=== PATIENT | female | born 1990 | race Caucasian/White ===

== ENCOUNTER 2024-11-07 09:48 | Outpatient (CLI) | payer SELFPAY ==
[2024-11-07 10:27] LABS: Albumin Level 4.3 g/dL (3.5-5.1); Anion Gap 6 mmol/L (4-12); Blood Urea Nitrogen 10 mg/dL (7-17); Calcium 9.1 mg/dL (8.4-10.2); Carbon Dioxide 29 mmol/L (22-30); Chloride 105 mmol/L (98-107); Estimated Glomerular Filt Rate > 60; Glucose 84 mg/dL (65-110); Potassium 4.2 mmol/L (3.4-5.0); Sodium 140 mmol/L (137-145)
[2024-11-07 10:28] LABS: Iron 83 ug/dL (37-170)
--- OUTSIDE RECORDS SUMMARY | 2024-11-07 10:34 | XMS_ITS | Encounter Summary ---
Author Organization [facility] Address [facility] [place] [address] Care Team Providers Care Residential Air Sealing Technician Name Role Phone Sergey Cordon NP Primary Care Provider [phone] Matt Cannon MD Primary Care Provider [phone] Encounter Details Date Type Department Care Team (Late st Contact Info) Description 09/17/2017 Abstract [facility] CONVERSION [address] [place] [address] , Generic Conversion, Social History Tobacco Use Types Packs/Day Years Used Date Smoking Tobacco: Never Assessed Comments Unknown Sex and Gender Information Value Date Recorded Sex Assigned at Not on file 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 Gender Identity Not on file Sexual Orientation Not on file documented as of this encounter Plan of Treatment Not on file documented as of this encounter Visit Diagnoses Not on filedocumented in this encounter Additional Health Concerns Infection Onset Date Last Indicated Resolved Time COVID-19 Rule Out 11/21/2021 11/21/2021 11/21/2021 2:03 PM CDT COVID-19 Rule Out 01/07/2022 01/07/2022 01/07/2022 11:58 AM CDT documented as of this encounter Care Teams Residential Air Sealing Technician Relationship Specialty Start Date End Date Sergey Cordon NP [address] [address] PCP - General FAMILY PRACTICE 03/21/18 12/08/21 Matt Cannon MD [address] [facility] [address] [place] [address] PCP - General INTERNAL MEDICINE 12/09/21 documented as of this encounter
--- OUTSIDE RECORDS SUMMARY | 2024-11-07 10:34 | XMS_ITS | Continuity of Care Document ---
Author Name [facility] Organization [facility] Care Team Providers Care Divinity Professor Name Role Phone [facility] Unavailable Unavailable Encounters Combined list of: 1) Encounters from Department of Veterans Affairs facilities going backup to the last 18 months, not all [facility] inpatient encounters are included; 2) Encounters from the Department of Defense facilities going backup to 280 months. Location Location Details Encounter Type Encounter Number Reason For Visit Attending Provider ADM Date DC Date Status Disposition Source [facility] Outpatient Encounter [id number] 07/14 [facility]
--- OUTSIDE RECORDS SUMMARY | 2024-11-07 10:35 | XMS_ITS | Clinical Summary ---
Author Organization [facility] Address [facility], [facility] [place] [address] Care Team Providers Care Appraisal Coordinator Name Role Phone Matt Cannon MD Primary Care Provider [phone] Allergies Active Allergy Reactions Criticality Noted Date Comments Codeine GI Upset Medium 03/21/2018 Medications levothyroxine 125 MCG tablet Take 125 mcg by mouth every morning. Active vitamin 28-0.6-0.4-340 MG capsule Take 1 capsule by mouth daily. Active pantoprazole 40 MG tablet Take 40 mg by mouth daily. Active metoclopramide 10 MG tablet Take 10 mg by mouth 4 (four) times daily. Active ferrous sulfate, 65 mg elemental, 325 (65 FE) MG tablet Take 1 tablet (325 mg total) by mouth daily with breakfast. 30 tablet 1 06/16/2018 Active sertraline 100 MG tablet Take by mouth daily. Active cyclobenzaprine 10 MG tablet Take 10 mg by mouth 3 (three) times daily as needed for Muscle Spasms. Active Active Problems Problem Noted Date Diagnosed Date delivery ([facility]) 01/08/2022 ([facility]) 01/08/2022 Uterine contractions ([facility]) 01/07/2022 Uterine contractions during ([facility]) 06/11/2018 Pelvic pain affecting ([facility]) 2017 UTI (urinary tract infection) during ( [facility]) 03/21/2018 Family History Medical History Relation Comments Heart Disease Father Thyroid Disease Mother Relation Status Comments Brother Alive Father Alive Maternal Grandfather Alive Maternal Grandmother Mother Alive Paternal Grandfather Paternal Grandmother Social History Tobacco Use Types Packs/Day Years Used Date Smoking Tobacco: Never Smokeless Tobacco: Never Alcohol Use Standard Drinks/Week Comments No 0 (1 standard drink = 0.6 oz pur e alcohol) AUDIT-C Answer Date Recorded Frequency of Alcohol Consumption Never 03/21/2018 Average Number of Drinks Not on file 018 Frequency of Binge Drinking Not on file 03/04 Depression Answer Date Recor ded Last EPDS Total Score 0 01/09/2022 Last EPDS Self Harm Result Never 01/09 Comments No Sex and Gender Information Value Date Recorded Sex Assigned at Not on file 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 Gender Identity Not on file Sexual Orientation Not on file Last Filed Vital Signs Vital Sign Reading Time Taken Comments Blood Pressure 109/63 01/10/2022 8:18 AM CDT Pulse 77 01/10/2022 8:18 AM CDT Temperature 36.7 C (98.1 F) 01/10/2022 8:17 AM CDT Respiratory Rate 18 01/10/2022 4:47 AM CDT Oxygen Saturation 76% 01/07/2022 6:07 PM CDT Inhaled Oxygen Concentration - - Weight 111.1 kg (245 lb) 01/07/2022 7:00 AM CDT Height 167.6 cm (5' 6 ) 01/07/2022 7:00 AM CDT Body Mass Index 39.54 01/07/2022 7:00 AM CDT Plan of Treatment Health Maintenance Due Date Last Done Comments Annual Physical 09/16/1995 DTaP, Tdap and Td Vaccines ( 1 - Tdap) 09/16/2011 Hepatitis B Vaccines (1 of 3 - 19+ 3-dose series) 09/16/2011 COVID-19 Vaccine ( - 2023-2 5 season) 2024 Cervical Cancer Screening Pa p Smear (Age 30 to 64) Every 3 Years 02/28/2027 02/29/2024, 06/11/2020 Cervical Cancer Screening Pa p with HPV Testing (Age 30 to 64) Every 5 Years 02/28/2029 02/29/2024 Cervical Cancer Screening wi th HPV 02/28/2029 Hepatitis C Completed 10/25/2017 HPV Vaccines Aged Out No longer eligi ble based on patient's age to complete this topic Meningococcal B Vaccine Aged Out No l onger eligible based on patient's age to complete this topic Meningococcal Vaccine Aged Out No vladimir judy eligible based on patient's age to complete this topic Pneumococcal Vaccine: Pediatrics (0 to 5 Years) and At-Risk Patients (6 to 49 Years) Aged Out No longer eligible b ased on patient's age to complete this topic RSV Immunizations Under 20 Months Aged Out No longer eligible b ased on patient's age to complete this topic Procedures Procedure Name Priority Date/Time Associated Diagnosis Comments HUMAN PAPILLOMAVIRUS, HIGH-RISK TYPES Routine 02/29/2024 12:00 PM CDT CYTOPATH CERV/VAG THIN LAYER Routine 02/29/2024 12:00 AM CDT HEPATITIS C ANTIBODY Routine 10/25/2017 3:21 PM CDT Encounter for supervision of normal ([facility]) from Last 3 Months or Most Recently Relevant to Health Maintenance Results * HUMAN PAPILLOMAVIRUS, HIGH-RISK TYPES (02/29/2024 12:00 PM CDT) SPECIMEN CERVIX 03/06/2024 7:39 AM CDT [facility] HPV DNA HIGH RISK NEGATIVE NEGATIVE 03/07/2024 12:40 AM CDT [facility] Comment:SEE CYTOLOGY REPORT 02/29/2024 12:0 0 PM CDT Laura Dias MD PATHOLOGY/CYTOLOGY ORDERA BLES Final Result [facility] [address] [place] [address], * Cytopath Cerv/Vag Thin Layer (02/29/2024 12:00 AM CDT) THIN PREP PAP [facility] [address] [place] [address] Department of Pathology Pathology Report CERVICAL/VAGINAL PAP SMEAR REPORT Name: MAJO CHAHAL Age: 3 1990 (Age: 33) Location: [facility] Sex: F Collected Date: 02/29/2024 Hospital #: [id number] Date Received: 03/02/2024 Date Reported: 03/07/2024 Provider: LAURA CANNON MD INTERPRETATION CERVICAL/ENDOCERVI OMARI: SATISFACTORY FOR EVALUATION. ENDOCERVICAL/TRANS FORMATION ZONE COMPONENT PRESENT. NEGATIVE FOR INTRAEPITHELIAL LESION OR MALIGNANCY. NEGATIVE FOR HIGH RISK HPV. The FDA approved Aptima HPV assay is an in vitro nucleic acid amplification test for the qualitative detection of E6/E7 viral messenger RNA (mRNA) from 14 high-risk types of human papillomavirus (HPV) in cervical specimens. The high-risk HPV types detected by the assay include: 16,18,31,33,35,39, 45,51,52,56,58,59, 66, and 68. Electronically Signed Out By ANA Foster (ASCP) CLINICAL HISTORY Z12.4 SCREENING FOR CERVICAL CANCER SCREENING PAP ThinPrep Pap Test with HR HPV testing in patient > 30 years requested. Date of Last Menstrual Period: UNKNOWN Menstrual Status: Regular SPECIMEN SUBMITTED CERVICAL/ENDOCERVI OMARI Specimen Received:1 Thin Prep Vial, Image Assisted Pap (SMD) Please note: The Pap smear is not a diagnostic test. It is a screening test. Negative results on combined screening (Pap test and HPV-DNA) have a high negative predictive value (99.1-100 percent) for cervical cancer. The pap test is not effective in detecting cervical adenocarcinoma. [facility] 02/29/2024 03/02/2024 9:5 7 AM CDT Comment:CERVICAL/ENDOCERVICA L us Laura Dias MD PATHOLOGY/CYTOLOGY ORDERA BLES Final Result [facility] [address] [place] [address], * HEPATITIS C ANTIBODY (10/25/2017 3:21 PM CDT) HEPATITIS C AB NON-REACTI VE NON-REACT STEVEN 10/27/2017 8:31 AM CDT [facility] Comment: ANTIBODIES TO HCV NOT DETECTED. DOES NOT EXCLUDE THE POSSIBILITY OF EXPOSURE TO HCV. 10/25/2017 3:21 PM CDT us Laura Dias MD LABORATORY Final Res ult [facility] [address] [place] [address], [id number] from Last 3 Months or Most Recently Relevant to Health Maintenance Insurance [facility] Advance Directives * Full Code (Latest Code Status on File) Date Activated Date Inactivated Comments 01/07/2022 9:09 AM 01/10/2022 2:26 PM Care Teams Appraisal Coordinator Relationship Specialty Start Date End Date Matt Cannon MD PCP - General INTERNAL MEDICINE 12/09/21
[2024-11-07 10:40] LABS: Hematocrit 38.3 % (37.0-47.0); Hemoglobin 12.4 g/dL (12.0-15.0); Mean Corpuscular HGB Conc 32.4 g/dl (32-36); Mean Corpuscular Hemoglobin 30.3 pg (26-34); Mean Corpuscular Volume 93.6 fl (80-100); Mean Platelet Volume 9.7 fl (7.4-10.4); Platelet Count Result 232 k/mm3 (150-375); Red Blood Count 4.09 M/mm3 (4.2-5.4); Red Cell Distribution Width 12.4 % (11.5-14.5); White Blood Count 6.2 K/mm3 (4.5-10.0)
[2024-11-07 11:06] LABS: Prealbumin 22.8 mg/dL (17.6-36.0)
[2024-11-11 16:48] LABS: Vitamin B1 8 nmol/L (8-30)
== END 2024-11-07 09:49 | disposition home or self-care (01) ==
PROVIDERS: Visit Provider Surgery Plastic and Reconstructive Surgery
DX: R63.4 Abnormal weight loss (principal)
CPT/HCPCS: 36415; 80048; 82040; 83540; 84134; 84425; 85027

== ENCOUNTER 2024-12-13 03:04 | Day surgery (SDC) | payer OTHER, SELFPAY ==
[2024-12-05 14:17] VITALS: BMI 27.5
--- NOTE | 2024-12-05 14:17 | PC.NURSE ---
Report to the Outpatient Waiting Room, entrance under the green pavilion located off [facility], at time _0600_ on date _[id number]_. Planned Procedure Time: _0730_.? Time changes happen often and if your time is changed the preop area will call you the afternoon before. - You and your visitor will be asked to self-screen and do not enter if you have any COVID symptoms. Please call surgeon if you need to reschedule. - A mask is optional within the hospital at this time. Patients may have clear liquids (water, carbonated beverages, clear teas, apple juice) until 3 hours prior to surgery with a maximum of 20 ounces. - No food from midnight until time of surgery and no smoking, or chewing tobacco (or any form of nicotine). No chewing gum, candy or mints. Take only the following medications with a SIP of water on the morning of surgery: ___None____ DO NOT STOP ANY OF YOUR OTHER PRESCRIPTION MEDICATIONS PRIOR TO SURGERY EXCEPT THE FOLLOWING Hold all vitamins and supplements for 3 days per anesthesiologist. Medications to discontinue per physician Date to take last dose Please no make-up, nail togolese, hairspray, perfume, deodorant, or body powder the day of surgery.? No jewelry (including any body piercings) or valuables the day of surgery, leave them at home.? Please take a shower or bath the night before, or the morning of, surgery with an antibacterial soap.? Wear comfortable, loose fitting clothing.? - Jewelry must be removed prior to entering the operating room.? Rings and piercings that are not removed may be cut off. - The hospital will not accept responsibility for valuables.? - Please leave all valuables, including medications, at home the day of surgery. If you are going home after surgery, a licensed high lift driver must drive you home.? - NO public transportation without another adult if you receive anesthesia. - We recommend that an adult stay with you for 24 hours following discharge. - We also recommend that you do not drive, make important decision, drink alcoholic beverages, or take any drugs that were not prescribed by your health care provider for at least 24 hours after your discharge time. Follow any additional instructions given to you from your surgeon. Telephone instructions given to __Majo___and asked if any additional questions and then verbalized understanding. Patient advised to call surgeon office or pre surgery nurse liaison [phone] if any additional questions.
[2024-12-13] VITALS (9 sets, daily range): BP systolic 112–130; BP diastolic 66–81; PULSE 68–105; RESP 13–19; TEMP 36.1; O2SAT 94–100; BMI 27.6
--- OUTSIDE RECORDS SUMMARY | 2024-12-13 03:06 | XMS_ITS | Continuity of Care Document ---
Author Name [facility] Organization [facility] Care Team Providers Care Literature Professor Name Role Phone [facility] Unavailable Unavailable [...] ADM Date DC Date Status Disposition Source [facility] Outpatient Encounter [id number] 07/14 [facility]
[2024-12-13 06:36] LABS: Urine Cotinine NEGATIVE
[2024-12-13] MEDS: LACTATED RINGERS 1,000 ML 30 ML IV CONT ×2 (06:55→09:50)
--- NOTE | 2024-12-13 07:03 | WPDHPUPDATE1 ---
History and Physical Update Update Date/Time: 12/13/24 07:03 History and Physical has been reviewed, including an updated exam of the patient. There are NO changes in the patient's condition. Risks, benefits, and alternatives have been discussed and questions answered. Patient agrees to proceed with procedure.
--- NOTE | 2024-12-13 07:18 | W.PM.PROC2 ---
Procedure Note - Detailed Date of Procedure 12/13/24 Pre-op Diagnosis micromastia, breast ptosis Post-op Diagnosis Same Procedure Performed Bilateral augmentation mastopexy Surgeon Case Tello MD Anesthesia General Findings Inverted T Superior pedicle Bilateral Nastrelle Inspira SoftTouch 520cc Subfascial Right: REF# [id number] SN [id number] Left: REF# [id number] SN [id number] Description of Procedure She is here today for bilateral breast augmentation mastopexy. Previously and again today the risks, benefits, alternatives were discussed in extensive detail. I wanted her to be very realistic about the risks involved as well as expectations. We discussed aftercare and what to monitor for. Made sure answered all of her questions to her satisfaction today and consent was obtained. Marked in the preoperative holding area with their verification. The patient was taken to the operating room placed supine on the operating table. Anesthesia was provided by anesthesiology. A surgical time-out was taken. She was prepped and draped in a standard sterile fashion. Tumescent was utilized laterally to provide field block Tegaderm nipple Leon were placed. A 15 blade used to make an incision just superior to the inframammary fold leaving a cusp of de-epithelized tissue at the t junction. Dissection was continued until the chest wall as identified. I elevated a subfascial pocket in the appropriate dimensions based on our preoperative planning for the implant. I then copiously irrigated with saline solution and verified a strict hemostasis. Next the use a triple antibiotic and Betadine containing solution to irrigate the pocket. I washed my gloves with the triple antibiotic and Betadine solution. We washed the implant immediately upon opening it with this solution and only opened it when we needed it. I used implant funnel and no-touch technique. The implant was introduced into the pocket using the funnel. Having verified positioning of the implant this was closed using 2-0 PDS. I tailor tacked the breast into position. Placed her in a sitting position. Verified the nipple-areolar location based on preoperative planning as well as intraoperative observations and measurements in full agreement. Suction lipectomy was completed laterally with a 4mm jennifer cannula. This was based on preoperative planning, intraoperative observation, and rolling pinch which was in full agreement. She was placed supine. I de-epithelialized the pedicle. I then removed the inferior central portion of the breast need making sure the implant was well protected. I elevated medial and lateral tissue flaps as well for planned closure. I closed along the IMF with 2-0 Stratafix. Along the vertical with 2-0 PDS. I closed around the areola with 3-0 strata fix. 3-0 Monocryl along the vertical. 3-0 Stratafix along the IMF. I finally closed everything with running subcuticular 4-0 Monocryl and tissue glue. Fluffs and surgical bra were placed. Estimated Blood Loss 30 Drains No Packing No Pathology None sent Complications No immediate complications Condition Stable Disposition PACU
[2024-12-13] MEDS: TRANEXAMIC ACID 1,000MG/ISO100 1,000 MG/100 ML BAG 200 MG IVPB (07:20)
--- NOTE | 2024-12-13 07:23 | P.PNAN_ITS ---
Anes - Initial Pre Proc Eval Procedure: Operation Date: 12/13/24 07:30 Proposed Procedures p Bilateral Breast Augmentation, - Case Tello MD s Bilateral Breast Mastopexy - Case Tello MD Date/Time: 12/13/24 07:23 Surgeon: Case Tello MD Pre Op Diagnosis: micromastia, breast ptosis Patient Data Age: 34 Gender: F Height: 1.68 m Weight: 77.3 kg Allergies Allergy/AdvReac Type Severity Reaction Status Date / Time codeine AdvReac Intermediate Other Verified 12/05/24 14:10 Home Medications ?Medication ?Instructions ?Recorded ?Confirmed ?Type levothyroxine 150 mcg tablet 150 mcg PO HS 12/05/24 12/05/24 History pantoprazole 40 mg tablet,delayed 40 mg PO HS 12/05/24 12/05/24 History release sertraline 100 mg tablet 200 mg PO HS 12/05/24 12/05/24 History Laboratory Tests 12/13/24 06:12 Cotinine Negative Patient hx anesthesia problems: none Family hx anesthesia problems: none Results Review: All pre-operative results and documents have been reviewed as part of the pre- operative evaluation. PMF Social History Social History Smoking status: Former smoker Tobacco type: e-cigarettes/vaping Living arrangements: with family Spiritual care concerns: No Anes - Eval Final PreProcedure Day of Procedure 12/13/24 07:23 Patient weight: normal Heart: regular rate and rhythm Lungs: clear to auscultation Airway: Mallampati scale class II Neurological: alert and oriented Last oral intake: >/= 8 hours ASA classification: II Emergent: no Anesthetic plan: proceed Anesthesia type and monitoring: general LMA and standard monitoring Results Review: All pre-operative results and documents have been reviewed as part of the pre- operative evaluation. Informed Consent: The patient's anesthetic plan and its attendant risks and benefits were discussed with the patient/family/POA. Questions were solicited and answers provided to the satisfaction of the patient/family/POA.
[2024-12-13] MEDS: ceFAZolin 2 GM/D5W 50 ML 2 GM/50 ML BAG IVPB (07:27)
[2024-12-13 07:42] LABS: BEDSIDEPREGUCG Negative (Negative)
[2024-12-13] MEDS: LACTATED RINGERS IRRIG 1,000 ML, LIDOCAINE 1% LOCAL INJ 50 ML, EPINEPHrine HCL INJ 1 MG... INFILTRATE (07:55)
[2024-12-13] MEDS: NACL 0.9% IRRIG POUR BOTTLE 900 ML, GENTAMICIN SULFATE INJ 160 MG, ceFAZolin 2 GM, POVI... IRRIGATION (09:08)
[2024-12-13] MEDS: oxyCODONE HCL (*CRX) 5 MG TAB IR PO (10:52)
== END 2024-12-13 11:58 | disposition home or self-care (01) ==
PROVIDERS: Visit Provider Surgery Plastic and Reconstructive Surgery
PROC: (CPT 19316; principal; 2024-12-13 07:30)
PROC: (CPT 19316; 2024-12-13 07:30)
DX: Z41.1 Encounter for cosmetic surgery (principal); N64.81 Ptosis of breast; N64.82 Hypoplasia of breast; E07.9 Disorder of thyroid, unspecified; D89.89 Other specified disorders involving the immune mechanism, not elsewhere classified; Z87.891 Personal history of nicotine dependence
CPT/HCPCS: 19316; 19325; 80307; A9270; J0171; J0690; J1100; J1171; J1200; J1580; J1596; J2003; J2004; J2250; J2371; J2405; J2704; J3010; J7120